=== PATIENT | female | born 1975 | race Caucasian/White ===

== ENCOUNTER 2024-09-27 08:32 | Day surgery (SDC) | payer BC, SELFPAY ==
[2024-09-09 07:57] VITALS: BMI 40.8
[2024-09-09 08:26] LABS: HCG, Urine Qualitative Screen Negative
[2024-09-09 08:40] LABS: % Basophils 0.9 % (0-2); % Eosinophils 1.2 % (0-6); % Immature Granulocytes 0.2 % (0-0.5); % Lymphocytes 37.4 % (20.5-51.1); % Monocytes 9.5 % (1.7-9.3); % Neutrophils 50.8 % (42.2-75.2); Absolute Basophils 0.1 10^3/uL (0-0.2); Absolute Eosinophils 0.1 10^3/uL (0-0.7); Absolute Lymphocytes 2.5 10^3/uL (1.2-3.4); Absolute Monocytes 0.6 10^3/uL (0.1-0.6); Absolute Neutrophils 3.4 10^3/uL (1.4-6.5); Hematocrit 39.5 % (37.0-47.0); Hemoglobin 13.2 g/dL (12.0-16.0); Mean Corp Hgb Conc. 33.4 g/dL (33.0-37.0); Mean Corpuscular Hgb 30.9 pg (27.0-31.0); Mean Corpuscular Volume 92.5 fL (81.0-99.0); Nucleated Red Blood Cells % 0 %; Platelet Count 299 10^3/uL (130-400); Red Blood Cell Count 4.27 10^6/uL (4.20-5.40); Red Cell Dist. Width 13.5 % (11.5-14.5); White Blood Cell Count 6.7 10^3/uL (4.8-10.8)
[2024-09-09 09:17] LABS: ALT (SGPT) 32 U/L (0-35); AST (SGOT) 26 U/L (14-36); Albumin 4.5 g/dl (3.5-5.0); Alkaline Phosphatase 82 U/L (38-126); Blood Urea Nitrogen 9 mg/dl (7-17); Calcium 9.9 mg/dl (8.4-10.2); Carbon Dioxide 27 mmol/L (22-30); Chloride 97 mmol/L (98-107); Estimated Creatinine Clearance > 125 ml/min; Glucose 108 mg/dl (70-99); Magnesium 1.6 mg/dl (1.6-2.3); Potassium 3.6 mmol/L (3.5-5.1); Sodium 135 mmol/L (135-145); Total Bilirubin 0.9 mg/dl (0.2-1.3); Total Protein 6.9 g/dl (6.3-8.2); eGFR > 60.00
[2024-09-27] VITALS (10 sets, daily range): BP systolic 133–147; BP diastolic 71–95; BMI 40.7
[2024-09-27 09:18] LABS: HCG, Urine Qualitative Screen Negative
[2024-09-27 13:38] LABS: ACT-LR - POC 258 Seconds (116-155)
[2024-09-27 13:57] LABS: ACT-LR - POC 326 Seconds (116-155)
[2024-09-27 14:38] LABS: ACT-LR - POC 316 Seconds (116-155)
[2024-09-27 14:48] LABS: ACT-LR - POC 131 Seconds (116-155)
--- NOTE | 2024-09-27 18:46 | ITS.CL.ABL ---
[employer] - Ablation
Ablation
Procedure Report:
Primary Physician: Dr. Kirill Blackburn
Primary Mule Operator: Dr Derrick Mata
Procedure Date: 09/27/2024
Procedure
Electrophysiology Study with SVT ablation
Left atrial recording / pacing
IV drug for arrhythmia induction
Patient History
Patient is a pleasant 49-year-old female with a past medical history significant for hypertension, MS, obesity, PVCs, and symptomatic paroxysmal SVT. SVT noted to be adenosine sensitive in 2021 and 2023. Previously terminated with vagal maneuvers
as well. EKG demonstrated a short RP tachycardia at 169 bpm.
Method
After informed consent was obtained, the patient was brought to the EP lab in a post-absorptive, non-sedated state. A peripheral IV was in place. Continuous electrocardiography, blood pressure and pulse oximetry monitoring was initiated and
cardioversion / defibrillator electrodes were positioned on the chest in an AP orientation. A 'time-out' was called. Conscious sedation was administered with the assistance of the anesthesia services, and local anesthesia was given at the femoral
vein access sites.
Using modified Seldinger technique, vascular access was achieved using ultrasound guidance (images saved to record) and sheaths were placed. Multipolar catheters were advanced to the coronary sinus, His bundle recording position, right ventricle,
and high right atrium. Following the determination of baseline conduction intervals, comprehensive EP study was performed. Pacing and recording from the RA, RV, HBE, and CS / LA was performed.
For arrhythmia details, see below.
Fluoroscopy time:
9.0 min; 32.03 mGy; DAP 4.84
Total RF time:
4min 25s
Estimated Blood Loss
5 mL
Complications
None
At the end of the procedure, all catheters and sheaths were removed and hemostasis was assured with Vascade and manual pressure. Protamine was given. The patient was returned to the recovery area in stable condition.
Access Sites:
Left Femoral Vein: 2 sheaths (7 Fr, 6 Fr)
Right Femoral Vein: 2 sheaths (9 Fr upsized to 11.5 Fr, 6 Fr)
Baseline Intervals:
Rhythm: SR
VA: 148 ms
AH: 76 ms
HV: 44 ms
QRS: 77 ms
QT: 348 ms
QTc: 446 ms
A-A: 620 ms
R-R: 620 ms
Post-Procedure Intervals:
VA: 119 ms
AH: 72 ms
HV: 53 ms
QRS: 113 ms
QT: 340 ms
QTc: 432 ms
A-A: 620 ms
R-R: 620 ms
AV Conduction:
- AVWB at 340 msec
- VAWB at <250 msec
Refractory Periods
- AV Node ERP 600/300
Procedure Synopsis:
The patient entered the room in sinus rhythm. Following access and catheter placement as noted above, EP study was performed. Initial threshold testing was performed. Next, VA Wenckebach was performed and VA conduction was noted at 250 ms. Next,
Para-Hisian pacing was performed demonstrating a max response. RA catheter with intermittent capture and on manipulation, AF was induced. Sinus rhythm was restored with a 200 J synchronized cardioversion. Patient without history of atrial
fibrillation. RA catheter was removed to avoid reinduction through catheter manipulation of AF. AV Wenckebach was performed via CS catheter. Atrial extrastimuli with S1/S2 was performed and tachycardia was induced. This was in a�on�V tachycardia
with a cycle length of 460 ms. With ventricular overdrive pacing, entrainment was established and a VAV response was noted. PPI minus TCL was greater than 115 ms and SA minus VA was noted to be greater than 85 ms. Given the after mentioned
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 Tachycardia was terminated with ventricular pacing. Heparin was provided for goal ACT 300�400. HD grid was advanced into the right atrium. Mapping within sinus rhythm was done of the right atrium with
careful attention to the his region, coronary sinus, slow pathway region, and floor. HD grid was removed and ablation catheter was introduced. Catheter-based ablation was performed in the region of the slow pathway with EGM signal 1: 3�1: 5 A: V
ratio at the level of the coronary sinus floor rising no higher than the mid coronary sinus.. Careful attention was paid noting no his signal on ablation distal catheter prior to ablation. At 25-30 W with low flow, ablation was performed with
careful monitoring of AV conduction, impedance, temperature. With ablation at level of mid coronary sinus ostium height, fast junctional's were noted and ablation was stopped. Mapping this region with ablation distal did not demonstrate a his
signal on EGM. Following completion of ablation lesions and slow pathway region, electrophysiology study was once more performed. SVT no longer inducible. With atrial extra stimuli, there was no evidence of an AH jump or SVT induction. AV
conduction remained consistent and unchanged. Isoproterenol provided and maneuvers once more performed. SVT remained noninducible. Procedure was subsequently concluded and hemostasis achieved as noted above above.
Recommendations
-Anticipate same-day discharge if patient meeting clinical metrics
- Bedrest with straight-leg precautions
- Continue home medications as indicated
- Follow-up in office as scheduled
Jay Anderson DO, FACC
Clinical Cardiac Electrophysiology
cc: Dr Derrick Mata, Dr Kirill Blackburn
== END 2024-09-27 18:05 | disposition home or self-care (01) ==
LOC: CATH 08:32
PROVIDERS: ATTENDING PHYSICIAN Internal Medicine Cardiovascular Disease; FAMILY PHYSICIAN Family Medicine; OTHER PHYSICIAN Internal Medicine Cardiovascular Disease
DX: I47.10 Supraventricular tachycardia, unspecified (principal); R42 Dizziness and giddiness; R06.02 Shortness of breath; R00.2 Palpitations; E66.01 Morbid (severe) obesity due to excess calories; Z68.41 Body mass index [BMI] 40.0-44.9, adult; I10 Essential (primary) hypertension; G47.33 Obstructive sleep apnea (adult) (pediatric); M19.90 Unspecified osteoarthritis, unspecified site; G47.00 Insomnia, unspecified; K21.9 Gastro-esophageal reflux disease without esophagitis; I49.3 Ventricular premature depolarization; Z79.899 Other long term (current) drug therapy; G35 Multiple sclerosis
CPT/HCPCS: C1732; C1730; C1894; C2630; C1892; 36415; 80053; 81025; 83735; 85025; 85347; 93005; 93623; 93653; C1760; C1766